=== PATIENT | female | born 1930 | race Caucasian/White ===

== ENCOUNTER 2017-03-04 20:50 | Inpatient (IN) | payer BC ==
--- NOTE | ~2017-03-04 | HP ---
History And Physical [place] [id number] [facility] [place]. [address] NAME: BONIFACIO TORRES : 34 STATUS : ADM Sofia PAT#: [id number] AGE: 86 ADM/REG DATE : 03/04/17 MR#: [id number] REPORT SERV DATE: 03/05/17 DICTATED BY: OH GIBBS DATE: 03/05/17 REPORT STATUS : Draft TRANSCRIBED BY: MODYas DATE: 03/05/17 DATE OF ADMISSION: 03/04/2017 POINT OF ENTRY: [facility] Emergency Department. PRIMARY BRICK MAKER: Yadiel Burt M.D. CHIEF COMPLAINT: Unresponsiveness, hypoglycemia. HISTORY OF PRESENT ILLNESS: Ms. Torres is an 86-year-old female with history of insulin- dependent diabetes mellitus type 2, chronic systolic congestive heart failure with ejection fraction of 40% to 50%, COPD, coronary artery disease and other medical comorbidities, who was found unresponsive by her family members today and subsequently found to have a blood sugar of 33. Family states that the patient has had multiple recent falls at home. She also has had now two episodes of hypoglycemia, the first episode they were able to correct with sugar- containing products at home and did not pursue medical evaluation. For this episode, they reportedly found the patient on the ground and they estimated that she had been on the ground for a few hours when they returned home. She initially was very unresponsive. They called EMS, where blood sugar was found to be 33 and reportedly received an amp of D50 with improvement in the patient's mental status. Of note, the patient has not been eating very well, but still taking her diabetes medications. Initial evaluation in the emergency department notable for initial blood sugar of 76. Troponin was mildly elevated at 0.14. She did have a white count of 12,700 as well as evidence of a urinary tract infection. The patient was subsequently admitted to the Hospitalist Service for further evaluation and management. The patient denies any fevers, night sweats, chills, chest pain, shortness of breath, abdominal pain, diarrhea, constipation, melena, or hematochezia. Does report some nausea as well as poor appetite and poor oral intake recently. REVIEW OF SYSTEMS: Comprehensive review of systems otherwise negative unless listed in the history of present illness. PREVIOUS MEDICAL HISTORY: 1. Insulin-dependent diabetes mellitus type 2. 2. COPD, on 2-3 L by nasal cannula. 3. Chronic systolic congestive heart failure with ejection fraction of 40% to 50%. 4. Coronary artery disease with prior coronary artery bypass grafting. 5. Atrial fibrillation, on Coumadin. 6. Chronic kidney disease stage 3. 7. Hypertension. History And Physical [address] [place]. [address] NAME: BONIFACIO TORRES : 32 STATUS : ADM Sofia PAT#: [id number] AGE: 86 ADM/REG DATE : 03/04/17 MR#: [id number] REPORT SERV DATE: 03/05/17 DICTATED BY: OH GIBBS DATE: 03/05/17 REPORT STATUS : Draft TRANSCRIBED BY: ANTONI DATE: 03/05/17 8. Peripheral vascular disease. 9. Hypothyroidism. 10.Chronic troponin elevation. 11.History of breast cancer. PAST SURGICAL HISTORY: 1. Pacemaker/ICD insertion. 2. Coronary artery bypass grafting. 3. Partial nephrectomy. 4. Stenting. 5. Cholecystectomy. 6. Abdominal hysterectomy. 7. Appendectomy. 8. Tonsillectomy. 9. Bilateral mastectomy. ALLERGIES: LEVAQUIN AND CODEINE. HOME MEDICATIONS: 1. ProAir two puff inhalation q.4 hours p.r.n. 2. Eliquis 2.5 mg b.i.d. 3. Aspirin 81 mg daily. 4. Wellbutrin XL 300 mg daily. 5. Carvedilol 6.25 mg b.i.d. 6. Vitamin D 1000 units daily. 7. Vitamin B12, 1000 mcg daily. 8. Cyclosporine, Restasis eye drops b.i.d. 9. Lexapro 10 mg daily. 10.Advair one puff inhalation b.i.d. 11.Lasix 40 mg b.i.d. 12.Amaryl 2 mg daily. 13.NovoLog 18 units t.i.d. 14.Levemir 40 units daily. 15.Levemir 15 units q.h.s. 16.Imdur 60 mg b.i.d. 17.Levothyroxine 125 mcg daily. 18.Lisinopril 5 mg daily. 19.Singulair 10 mg daily. 20.Multivitamin one tab daily. 21.Nitroglycerin p.r.n. 22.Corwith-3 fatty acid, fish oil 1000 mg daily. 23.Crestor 20 mg daily. 24.Aldactone 25 mg daily. 25.Spiriva one cap inhalation daily. 26.Nitroglycerin spray p.r.n. SOCIAL HISTORY: Denies any tobacco, alcohol, or illicits. Lives alone. History And Physical [address] [address] NAME: BONIFACIO TORRES : 32 STATUS : ADM Sofia PAT#: [id number] AGE: 86 ADM/REG DATE : 03/04/17 MR#: [id number] REPORT SERV DATE: 03/05/17 DICTATED BY: OH GIBBS DATE: 03/05/17 REPORT STATUS : Draft TRANSCRIBED BY: ANTONI DATE: 03/05/17 FAMILY MEDICAL HISTORY: Her mother has a history of heart failure. LABORATORIES AND IMAGIN. White count is 12.7, hemoglobin 11.0, hematocrit is 33.0, platelets 219. INR is 1.2. 2. Sodium is 142, potassium 3.5, chloride 106, carbon dioxide 27, BUN 41, creatinine 1.24, glucose of 76, calcium is 8.9, protein is 6.5, albumin is 2.8, bilirubin is 0.4, ALT is 55, AST 67, alkaline phosphatase is 70, magnesium is 2.2. 3. Troponin 0.14. 4. Lipase is 176. 5. Urinalysis: Spec gravity 1.013. Trace leukocyte esterase with 12 white blood cells per high-power field. 6. Chest x-ray per my review shows no acute cardiopulmonary abnormality. 7. CT scan of the brain shows a 14 mm extra-axial meningioma. Otherwise, no acute intracranial abnormalities. 8. EKG per my review shows a V-paced rhythm with occasional PVCs. PHYSICAL EXAMINATION: VITAL SIGNS: Temperature is 97.5 degrees Fahrenheit, pulse is 70, respirations 16, saturating 100% on room air, blood pressure is 117/51. GENERAL: The patient is awake and alert, in no acute distress, resting comfortably. She is a well-developed, well-nourished, elderly female. There is extensive ecchymosis and bruising over upper extremities. HEENT: Atraumatic and normocephalic. Slightly dry mucous membranes. Pupils are equal, round, reactive to light and accommodation. Extraocular eye movements intact. No scleral icterus. NECK: No jugular venous distention. No carotid bruits. CARDIAC: Regular rate and rhythm. No murmurs or gallops. Normal S1 and S2. LUNGS: Clear to auscultation bilaterally. No wheezes, rhonchi, or crackles. ABDOMEN: Soft, nontender, nondistended. Good bowel sounds. No rebound, guarding, or rigidity. EXTREMITIES: Warm and perfused. No cyanosis, clubbing, or edema. SKIN: Warm and dry, except for the abovementioned ecchymosis and bruising. PSYCH: Affect appropriate. NEURO: Alert and oriented x3. Cranial nerves 2 through 12 grossly intact. Speech is normal. Gait not assessed. ASSESSMENT AND PLAN: Ms. Torres is an 86-year-old female, who presents after being found down and unresponsive and having a severe symptomatic hypoglycemia. PROBLEM LIST: 1. Severe symptomatic hypoglycemia. 2. Urinary tract infection. 3. Elevated troponin value. 4. Recurrent mechanical falls. 5. Leukocytosis. 6. History of coronary artery disease. History And Physical [address] [address] NAME: BONIFACIO TORRES : 32 STATUS : ADM Sofia PAT#: [id number] AGE: 86 ADM/REG DATE : 03/04/17 MR#: [id number] REPORT SERV DATE: 03/05/17 DICTATED BY: OH GIBBS DATE: 03/05/17 REPORT STATUS : Draft TRANSCRIBED BY: ANTONI DATE: 03/05/17 7. Atrial fibrillation, on anticoagulation. 8. Hypothyroidism. PLAN: 1. Severe symptomatic hypoglycemia. I suspect this is all due to poor oral intake in the setting of continued use of high doses of insulin as well as oral hypoglycemics. We will admit the patient to the Hospitalist Service, hold the patient's insulin as well as oral hypoglycemics, provide her some gentle D5 infusion as well as place her on hypoglycemic protocol with frequent q.2 hour blood sugar checks at least overnight. We will consult diabetes nurse educator for assistance. We will likely need some down- titration of her insulin and diabetic regimen in the future. 2. Urinary tract infection. Follow up urine cultures. Place her on IV antibiotics. 3. Elevated troponin value. She denies any chest pain. EKG is nonischemic. We will continue to trend out cardiac enzymes. 4. Recurrent mechanical falls. We will ask Physical Therapy to evaluate the patient in the morning, checking orthostatic vital signs. Of note, she is on an anticoagulant, which places her at very high risk of significant adverse events. This will need to be discussed pending evaluation by PT. 5. Leukocytosis, likely secondary to urinary tract infection above. Chest x-ray was clear. She was afebrile. We will continue to monitor, checking procalcitonin level. 6. COPD, no evidence of any acute exacerbation at this time. 7. Chronic systolic congestive heart failure, the patient currently appears euvolemic at this time. Providing some very gentle IV fluid hydration with D5W. 8. Hypothyroidism, checking thyroid function studies. 9. DVT prophylaxis, is already on Eliquis. 10.Code status. The patient wishes to be full code. JCB/MODL Oh Gibbs MD / [id number] CC: MD Mirela Peng M.D. Brian Negus, M.D.
--- NOTE | ~2017-03-04 | DS ---
Discharge Summary [facility] [address] [facility] [place]. [address] NAME: BONIFACIO TORRES : 32 STATUS : DIS IN PAT#: [id number] AGE: 86 ADM/REG DATE : 03/04/17 MR#: [id number] REPORT SERV DATE: 03/10/17 DICTATED BY: MICHELLE MALLORY DATE: 03/09/17 REPORT STATUS : Draft TRANSCRIBED BY: MODYas DATE: 03/09/17 ADMISSION DATE: 03/04/2017 DISCHARGE DATE: 03/09/2017 CONSULTATIONS: None. INVASIVE PROCEDURES: None. DISCHARGE DIAGNOSES: 1. Acute encephalopathy. 2. Hypoglycemia. 3. Diabetes mellitus type 2. 4. Chronic obstructive pulmonary disease, on 2 to 3 L at home. 5. Chronic systolic congestive heart failure with ejection fraction of 40%. 6. Physical deconditioning. 7. Recurrent falls. 8. History of recurrent urinary tract infections. 9. Elevated troponin secondary to demand ischemia. 10.Atrial fibrillation. 11.Chronic kidney disease stage 3. 12.Hypertension. 13.History of pacemaker. 14.Peripheral neuropathy. 15.Peripheral vascular disease. DISCHARGE CONDITION: Stable. HISTORY OF PRESENT ILLNESS: For detailed HPI, please make reference to Dr. Olegario Saenz's dictation on 03/05/2017. In brief, this is an 86-year-old female with medical history of insulin-dependent diabetes type 2; chronic systolic heart failure with ejection fraction of 40%; COPD, on 2 to 3 L at home; coronary artery disease, who presented to the hospital after she was found unresponsive at home. On arrival of the paramedics, blood sugar was noted to be 33. The patient was brought to the emergency room for further evaluation. In the emergency room, the patient was noted to still be acutely confused. Blood sugar was repeated, was noted to be have improved into the 100s and remained stable. The patient was subsequently admitted to the Hospitalist Service for further evaluation. HOSPITAL COURSE: 1. Acute encephalopathy secondary to symptomatic hypoglycemia. The patient had a gentle infusion of D5 50 in the ER. The patient's oral hypoglycemic was discontinued. The patient's blood sugar gradually trended up and remained stable. The patient's blood sugar was subsequently controlled in the hospital with subcutaneous insulin. At the time of discharge, the patient was advised to discontinue glipizide at home and to control blood sugar with only insulin therapy. 2. Urinary tract infection. The patient's UA showed positive leukocyte esterase. The patient was placed on IV antibiotics. The patient's urine culture came back negative. Discharge Summary [address] [place]. [address] NAME: BONIFACIO TORRES : 32 STATUS : DIS IN PAT#: [id number] AGE: 86 ADM/REG DATE : 03/04/17 MR#: [id number] REPORT SERV DATE: 03/10/17 DICTATED BY: MICHELLE MALLORY DATE: 03/09/17 REPORT STATUS : Draft TRANSCRIBED BY: MODYas DATE: 03/09/17 The patient's IV ceftriaxone was subsequently discontinued. 3. Recurrent falls. The patient was admitted with history of recurrent falls. Prior to admission, the patient's etiology of recurrent falls was likely related to generalized physical deconditioning, poor p.o. intake, and recurrent hypoglycemia. The patient had physical therapy evaluation during the course of this admission. The patient was discharged to have rehabilitation at [facility]. 4. Elevated troponin. The patient had no chest pain during the course of this admission. EKG shows no dynamic acute ST-T wave changes. The patient's troponin was 0.14 on presentation, trended down to 0.06. No further episodes of chest pain reported. At the time of discharge, the patient was stable. The patient was advised to continue to follow up with her primary appeals court associate justice as an outpatient. 5. Gastroesophageal reflux disease. During the course of this admission, the patient complained of severe abdominal pain. A CT of the abdomen was done, shows no evidence of acute intraabdominal pathology. The patient's PPI was switched from bedtime to daily. The patient had a dose of simethicone and a dose of GI cocktail. The patient's abdominal pain subsequently improved. At the time of discharge, the patient had no further episode of abdominal pain. Liver enzymes were also negative during the course of this admission. The patient was advised to continue Protonix 40 mg in the morning for gastroesophageal reflux disease. 6. Paroxysmal atrial fibrillation. The patient had no evidence of RVR throughout the course of this admission. The patient was advised to continue beta-yoandy and Eliquis, and continue to follow up with primary care physician. IMAGING: CT brain without contrast, impression: 1. No acute intracranial hemorrhage or other acute intracranial pathology. 2. Mild diffuse cerebral involutional changes. 3. Dense atherosclerotic calcification of the vertebral arteries at the level of the foramen magnum. DISCHARGE CONDITION: Stable. DISCHARGE DISPOSITION: Subacute Rehab at [facility]. DISCHARGE ACTIVITIES: As tolerated. DISCHARGE DIET: 1800-calorie diet. DISCHARGE FOLLOWUP: 1. Follow up with primary care physician as an outpatient. 2. Follow up with Cardiology as an outpatient within two to three weeks of discharge. Greater than 35 minutes was used to prepare this patient's discharge, reconcile medication, and advise the patient on discharge plans and followup. IOO/MODL Discharge Summary [address] [address] NAME: BONIFACIO TORRES : 32 STATUS : DIS IN PAT#: [id number] AGE: 86 ADM/REG DATE : 03/04/17 MR#: [id number] REPORT SERV DATE: 03/10/17 DICTATED BY: MICHELLE MALLORY DATE: 03/09/17 REPORT STATUS : Draft TRANSCRIBED BY: ANTONI DATE: 03/09/17 Michelle Mallory MD / [id number] CC: MD Mirela Peng M.D.
[2017-03-04 19:49] LABS: BASOPHILS 0.2 %; BASOPHILS ABSOLUTE 0.03 10/3/uL (0.0-0.16); EOSINOPHILS 5.7 %; EOSINOPHILS ABSOLUTE 0.72 10/3/uL (0.0-0.53); IMMATURE GRANULOCYTES 0.6 %; IMMATURE GRANULOCYTES ABSOLUTE 0.07 10/3/uL (0.0-0.11); LYMPHOCYTES 10.7 %; LYMPHOCYTES ABSOLUTE 1.36 10/3/uL (0.67-4.30); MEAN CORPUS HGB CONC 33.3 g/dL (32.0-36.0); MEAN CORPUSCULAR VOLUME 87.1 fL (80-100); MEAN PLATELET VOLUME 9.3 fL (9.2-13.0); MONOCYTES 8.5 %; MONOCYTES ABSOLUTE 1.08 10/3/uL (0.21-1.20); NEUTROPHILS 74.3 %; PLATELET COUNT 219 10/3/uL (150-400); RBC DISTRIBUTION WIDTH 15.2 % (12.0-16.0); RED CELL COUNT 3.79 10/6/uL (4.0-5.6); WHITE BLOOD CELLS 12.7 10/3/uL (4.5-10.5)
[2017-03-04 19:52] LABS: MANUAL DIFF NO %
[2017-03-04 19:57] LABS: INTERNATIONAL NORMAL RATI 1.2 UNITS (-); PARTIAL THROMBO TIME 30.6 SEC (22.5-37.2)
[2017-03-04 20:01] LABS: PROTIME (NOT ORD) 15.2 SEC (12.0-14.5)
[2017-03-04 20:10] LABS: CALCIUM, SERUM 8.9 MG/DL (8.5-10.4); CHLORIDE, SERUM 106 MMOL/L (96-112); CO2 (CARBON DIOXIDE) 27 MMOL/L (24-34); CREATININE 1.24 MG/DL (0.55-1.02); DIRECT BILIRUBIN 0.1 MG/DL (0.0-0.4); GFR AFRICAN AMERICAN 46 ML/MIN (>=60); GFR NON AFRICAN AMERICAN 40 ML/MIN (>=60); INDIRECT BILIRUBIN(NOT ORDER) 0.3 MG/DL (0.1-0.9); POTASSIUM, SERUM 3.5 MMOL/L (3.5-5.3); SGOT(AST) 67 U/L (5-40); SGPT(ALT) 55 U/L (5-65); SODIUM, SERUM 142 MMOL/L (135-148); TOTAL BILIRUBIN 0.4 MG/DL (0-1.2); TOTAL PROTEIN 6.5 G/DL (6.0-8.5)
[2017-03-04 20:12] LABS: ALBUMIN 2.8 G/DL (3.5-5.0); ALKALINE PHOSPHATASE 70 U/L (45-117); BUN (BLOOD UREA NITROGEN) 41 MG/DL (6-23); GLUCOSE, SERUM 76 MG/DL (60-99)
[2017-03-04 20:13] LABS: CHEST PAIN PROFILE TAT 0 Hrs 30 Mins; TROPONIN I 0.14 NG/ML (<0.05)
[~2017-03-04 20:50] MED LIST: ADVAIR250 INH; ALBUTEROL5 INH; ASAB PO; BUDEPRION XL150 MG PO; BUDEPRION150 MG PO; CALCIUM PO; CALGLUCTAB PO; CENTRUM TAB1 TAB PO; COREG3 PO; CRESTOR20 MG PO; ELIQUIS 5 MG TAB5 MG PO; FISH OIL1200 MG PO; FISH-EPA1000 MG PO; GLUCOPHAGE1000 MG PO; GLUCPH PO; HUMALOG SC; HUMALOGPEN SC; IMDUR60 PO; INSNOV7030 SC; INSULIN LISPRO SC; IRON; IRON325 MG PO; ISOSORB DIN30 MG PO; L20 PO; L40 PO; LEVEMFLXPN SC; LEVEMIR SC; LEVOTHYROXIN125 MCG PO; LEXAPRO10 PO; LIPITOR40 PO; LOP25 PO; MULTIPLE VIT PO; MVI PO; NITROQUICK0.4 MG SL; OXYGEN; PLAVIX PO; PRIN10 PO; PRIN20 PO; PRIN5 PO; PROAIR HFA INH; SINGULAIR1 PO; SPIRIVA INH; SYMBICORT 160/41 INH INH; SYN.15 PO; SYN1 PO; SYN125 PO; SYNTHROID137 MCG PO; SYSTANE OP; ULTRAM50 PO; VENTOLIN HFA INH; VITAMIN B-121000 MC1 SL; VITAMIN D1000 UNI1 PO; VITAMIN D31000 UNIT PO; WELLSR150 PO; WELLXL300 PO; [UNRECOGNIZED DRUG - OTHER] INH
[2017-03-04 21:10] LABS: ASCORBIC ACID (UR NOT ORDER) NEG (NEG); BILIRUBIN, URINE NEGATIVE (NEG); ER URINALYSIS TAT 0 Hrs 10 Mins; KETONE, URINE NEGATIVE (NEG); LEUKOCYTE ESTERASE(NOT OR TRACE (NEG); NITRITE (URINE) NEG (NEG); WBC (NOT ORDERED) (RFLEX) 12 (0-5)
[2017-03-04] MEDS ORDERED: ADVAIR INH (21:30)
[2017-03-04] MEDS ORDERED: HALF81 PO (21:31)
[2017-03-04] MEDS ORDERED: WELLXL300 PO (21:32)
[2017-03-04] MEDS ORDERED: COREG6 PO (21:32)
[2017-03-04] MEDS ORDERED: CRESTOR20 MG PO (21:32)
[2017-03-04] MEDS ORDERED: ELIQUIS 2.5 MG2.5 MG PO (21:32)
[2017-03-04] MEDS ORDERED: LEXAPRO10 PO (21:33)
[2017-03-04] MEDS ORDERED: FISH-EPA1000 MG PO (21:33)
[2017-03-04] MEDS ORDERED: AMARYL2 PO (21:34)
[2017-03-04] MEDS ORDERED: L40 PO (21:34)
[2017-03-04] MEDS ORDERED: IMDUR60 PO (21:35)
[2017-03-04] MEDS ORDERED: SYN125 PO (21:35)
[2017-03-04] MEDS ORDERED: LEVEMFLXPN SC ×2 (21:35)
[2017-03-04] MEDS ORDERED: PRIN5 PO (21:36)
[2017-03-04] MEDS ORDERED: MULTIVIT/MIN PO (21:37)
[2017-03-04] MEDS ORDERED: SINGULAIR1 PO (21:37)
[2017-03-04] MEDS ORDERED: NITROGLYCERIN SPRAY SL (21:38)
[2017-03-04] MEDS ORDERED: NITROSTAT0.4 MG SL (21:38)
[2017-03-04] MEDS ORDERED: SPIRIVA INH (21:39)
[2017-03-04] MEDS ORDERED: PROAIR HFA INH (21:39)
[2017-03-04] MEDS ORDERED: NOVOLOG SC (21:39)
[2017-03-04] MEDS ORDERED: RESTASIS OPH (21:40)
[2017-03-04] MEDS ORDERED: CYANO1000T PO (21:41)
[2017-03-04] MEDS ORDERED: SPIRO25 PO (21:41)
[2017-03-04] MEDS ORDERED: VITAMIN D31000 UNIT PO (21:42)
[2017-03-05 06:11] LABS: BASOPHILS 0.3 %; BASOPHILS ABSOLUTE 0.03 10/3/uL (0.0-0.16); EOSINOPHILS 8.7 %; EOSINOPHILS ABSOLUTE 0.97 10/3/uL (0.0-0.53); HEMOGLOBIN 9.9 g/dL (12.0-16.0); IMMATURE GRANULOCYTES 0.4 %; IMMATURE GRANULOCYTES ABSOLUTE 0.04 10/3/uL (0.0-0.11); LYMPHOCYTES 12.8 %; LYMPHOCYTES ABSOLUTE 1.42 10/3/uL (0.67-4.30); MEAN CORPUSCULAR HEMOGLOB 30.1 pg (26.0-34.0); MEAN CORPUSCULAR VOLUME 84.8 fL (80-100); MEAN PLATELET VOLUME 9.8 fL (9.2-13.0); MONOCYTES 8.8 %; MONOCYTES ABSOLUTE 0.98 10/3/uL (0.21-1.20); NEUTROPHILS ABSOLUTE 7.68 10/3/uL (2.02-8.40); PLATELET COUNT 220 10/3/uL (150-400); RBC DISTRIBUTION WIDTH 15.6 % (12.0-16.0); RED CELL COUNT 3.29 10/6/uL (4.0-5.6); WHITE BLOOD CELLS 11.1 10/3/uL (4.5-10.5)
[2017-03-05 06:15] LABS: HEMATOCRIT 27.9 % (36.0-48.0); MANUAL DIFF NO %; MEAN CORPUS HGB CONC 35.5 g/dL (32.0-36.0)
[2017-03-05 06:31] LABS: PLATELET ESTIMATE ADQ (ADEQUATE); RBC MORPHOLOGY NORM (NORMAL)
[2017-03-05 06:36] LABS: BUN (BLOOD UREA NITROGEN) 38 MG/DL (6-23); CALCIUM, SERUM 8.8 MG/DL (8.5-10.4); CHLORIDE, SERUM 107 MMOL/L (96-112); CK-MB 6.7 NG/ML; CO2 (CARBON DIOXIDE) 27 MMOL/L (24-34); CREATININE 1.07 MG/DL (0.55-1.02); FREE T4 1.11 NG/DL (0.76-1.46); GFR AFRICAN AMERICAN 55 ML/MIN (>=60); GFR NON AFRICAN AMERICAN 48 ML/MIN (>=60); POTASSIUM, SERUM 3.4 MMOL/L (3.5-5.3); SODIUM, SERUM 143 MMOL/L (135-148)
[2017-03-05 06:38] LABS: CKMB INDEX (NOT ORD) 1.4; CPK 466 U/L (0-200); GLUCOSE, SERUM 120 MG/DL (60-99)
[2017-03-05 06:50] LABS: B NATRIURETIC PEPTIDE (BNP) 261.6 PG/ML (< 100.0)
[2017-03-05 07:34] LABS: PROCALCITONIN 0.15 ng/mL (<0.5)
[2017-03-05 11:59] LABS: CPK 338 U/L (0-200)
[2017-03-05 12:00] LABS: CK-MB 4.6 NG/ML; TROPONIN I 0.06 NG/ML (<0.05)
[2017-03-06 05:39] LABS: BASOPHILS 0.7 %; BASOPHILS ABSOLUTE 0.07 10/3/uL (0.0-0.16); EOSINOPHILS 12.3 %; EOSINOPHILS ABSOLUTE 1.25 10/3/uL (0.0-0.53); HEMATOCRIT 26.5 % (36.0-48.0); IMMATURE GRANULOCYTES 0.5 %; IMMATURE GRANULOCYTES ABSOLUTE 0.05 10/3/uL (0.0-0.11); LYMPHOCYTES 15.7 %; MEAN CORPUSCULAR HEMOGLOB 29.3 pg (26.0-34.0); MEAN CORPUSCULAR VOLUME 86.3 fL (80-100); MEAN PLATELET VOLUME 9.9 fL (9.2-13.0); MONOCYTES 9.3 %; MONOCYTES ABSOLUTE 0.95 10/3/uL (0.21-1.20); NEUTROPHILS 61.5 %; NEUTROPHILS ABSOLUTE 6.25 10/3/uL (2.02-8.40); PLATELET COUNT 210 10/3/uL (150-400); RBC DISTRIBUTION WIDTH 15.8 % (12.0-16.0); RED CELL COUNT 3.07 10/6/uL (4.0-5.6); WHITE BLOOD CELLS 10.2 10/3/uL (4.5-10.5)
[2017-03-06 05:44] LABS: MANUAL DIFF NO %
[2017-03-06 05:59] LABS: ALBUMIN 2.5 G/DL (3.5-5.0); BUN (BLOOD UREA NITROGEN) 36 MG/DL (6-23); CALCIUM, SERUM 8.1 MG/DL (8.5-10.4); CHLORIDE, SERUM 109 MMOL/L (96-112); CO2 (CARBON DIOXIDE) 25 MMOL/L (24-34); CREATININE 1.15 MG/DL (0.55-1.02); GFR AFRICAN AMERICAN 51 ML/MIN (>=60); GFR NON AFRICAN AMERICAN 44 ML/MIN (>=60); GLUCOSE, SERUM 143 MG/DL (60-99); POTASSIUM, SERUM 3.8 MMOL/L (3.5-5.3); SODIUM, SERUM 143 MMOL/L (135-148)
[2017-03-06 06:00] LABS: PHOSPHORUS, SERUM 2.8 MG/DL (2.5-4.5)
[2017-03-06 16:02] LABS: ALBUMIN 2.6 G/DL (3.5-5.0); ALKALINE PHOSPHATASE 71 U/L (45-117); SGOT(AST) 24 U/L (5-40); SGPT(ALT) 45 U/L (5-65); TOTAL BILIRUBIN 0.2 MG/DL (0-1.2); TOTAL PROTEIN 5.8 G/DL (6.0-8.5)
[2017-03-06 16:03] LABS: DIRECT BILIRUBIN < 0.1 MG/DL (0.0-0.4); INDIRECT BILIRUBIN(NOT ORDER) 0.1 MG/DL (0.1-0.9)
[2017-03-07 05:05] LABS: BASOPHILS 0.4 %; BASOPHILS ABSOLUTE 0.04 10/3/uL (0.0-0.16); EOSINOPHILS ABSOLUTE 1.51 10/3/uL (0.0-0.53); HEMATOCRIT 26.9 % (36.0-48.0); HEMOGLOBIN 8.9 g/dL (12.0-16.0); IMMATURE GRANULOCYTES 0.8 %; IMMATURE GRANULOCYTES ABSOLUTE 0.09 10/3/uL (0.0-0.11); LYMPHOCYTES 14.8 %; MEAN CORPUS HGB CONC 33.1 g/dL (32.0-36.0); MEAN CORPUSCULAR HEMOGLOB 29.1 pg (26.0-34.0); MEAN CORPUSCULAR VOLUME 87.9 fL (80-100); MEAN PLATELET VOLUME 10.2 fL (9.2-13.0); MONOCYTES 7.7 %; MONOCYTES ABSOLUTE 0.83 10/3/uL (0.21-1.20); NEUTROPHILS 62.3 %; NEUTROPHILS ABSOLUTE 6.71 10/3/uL (2.02-8.40); PLATELET COUNT 227 10/3/uL (150-400); RBC DISTRIBUTION WIDTH 15.7 % (12.0-16.0); RED CELL COUNT 3.06 10/6/uL (4.0-5.6); WHITE BLOOD CELLS 10.8 10/3/uL (4.5-10.5)
[2017-03-07 05:09] LABS: MANUAL DIFF NO %
[2017-03-07 05:20] LABS: ALBUMIN 2.5 G/DL (3.5-5.0); ALKALINE PHOSPHATASE 65 U/L (45-117); BUN (BLOOD UREA NITROGEN) 33 MG/DL (6-23); CALCIUM, SERUM 8.7 MG/DL (8.5-10.4); CHLORIDE, SERUM 106 MMOL/L (96-112); CO2 (CARBON DIOXIDE) 27 MMOL/L (24-34); CREATININE 1.07 MG/DL (0.55-1.02); GFR AFRICAN AMERICAN 55 ML/MIN (>=60); GFR NON AFRICAN AMERICAN 48 ML/MIN (>=60); GLUCOSE, SERUM 168 MG/DL (60-99); POTASSIUM, SERUM 4.5 MMOL/L (3.5-5.3); SGOT(AST) 18 U/L (5-40); SGPT(ALT) 40 U/L (5-65); SODIUM, SERUM 140 MMOL/L (135-148); TOTAL BILIRUBIN 0.2 MG/DL (0-1.2); TOTAL PROTEIN 5.6 G/DL (6.0-8.5)
[2017-03-07 05:21] LABS: DIRECT BILIRUBIN < 0.1 MG/DL (0.0-0.4); INDIRECT BILIRUBIN(NOT ORDER) 0.1 MG/DL (0.1-0.9)
[2017-03-07 11:36] LABS: ASCORBIC ACID (UR NOT ORDER) NEG (NEG); BILIRUBIN, URINE NEGATIVE (NEG); KETONE, URINE NEGATIVE (NEG); LEUKOCYTE ESTERASE(NOT OR NEG (NEG); WBC (NOT ORDERED) (RFLEX) 4 (0-5)
[2017-03-08 05:12] LABS: BASOPHILS 0.3 %; BASOPHILS ABSOLUTE 0.03 10/3/uL (0.0-0.16); HEMATOCRIT 27.5 % (36.0-48.0); HEMOGLOBIN 9.1 g/dL (12.0-16.0); IMMATURE GRANULOCYTES ABSOLUTE 0.11 10/3/uL (0.0-0.11); LYMPHOCYTES 14.9 %; MEAN CORPUS HGB CONC 33.1 g/dL (32.0-36.0); MEAN CORPUSCULAR HEMOGLOB 29.4 pg (26.0-34.0); MEAN PLATELET VOLUME 10.1 fL (9.2-13.0); MONOCYTES 8.3 %; MONOCYTES ABSOLUTE 0.95 10/3/uL (0.21-1.20); NEUTROPHILS 61.5 %; NEUTROPHILS ABSOLUTE 7.01 10/3/uL (2.02-8.40); PLATELET COUNT 233 10/3/uL (150-400); RBC DISTRIBUTION WIDTH 15.4 % (12.0-16.0); RED CELL COUNT 3.09 10/6/uL (4.0-5.6); WHITE BLOOD CELLS 11.4 10/3/uL (4.5-10.5)
[2017-03-08 05:14] LABS: MANUAL DIFF NO %
[2017-03-08 05:23] LABS: BUN (BLOOD UREA NITROGEN) 34 MG/DL (6-23); CALCIUM, SERUM 8.9 MG/DL (8.5-10.4); CHLORIDE, SERUM 105 MMOL/L (96-112); CO2 (CARBON DIOXIDE) 28 MMOL/L (24-34); CREATININE 1.12 MG/DL (0.55-1.02); GFR AFRICAN AMERICAN 52 ML/MIN (>=60); GFR NON AFRICAN AMERICAN 45 ML/MIN (>=60); PHOSPHORUS, SERUM 2.6 MG/DL (2.5-4.5); POTASSIUM, SERUM 4.6 MMOL/L (3.5-5.3); SODIUM, SERUM 139 MMOL/L (135-148)
[2017-03-08 05:24] LABS: GLUCOSE, SERUM 205 MG/DL (60-99)
[2017-03-08 14:44] LABS: ASCORBIC ACID (UR NOT ORDER) NEG (NEG); BILIRUBIN, URINE NEGATIVE (NEG); KETONE, URINE NEGATIVE (NEG); LEUKOCYTE ESTERASE(NOT OR TRACE (NEG); WBC (NOT ORDERED) (RFLEX) 6 (0-5)
[2017-03-09 06:28] LABS: BASOPHILS 0.4 %; BASOPHILS ABSOLUTE 0.05 10/3/uL (0.0-0.16); EOSINOPHILS 12.6 %; EOSINOPHILS ABSOLUTE 1.42 10/3/uL (0.0-0.53); HEMATOCRIT 29.2 % (36.0-48.0); HEMOGLOBIN 9.6 g/dL (12.0-16.0); IMMATURE GRANULOCYTES 0.7 %; IMMATURE GRANULOCYTES ABSOLUTE 0.08 10/3/uL (0.0-0.11); LYMPHOCYTES 12.7 %; LYMPHOCYTES ABSOLUTE 1.43 10/3/uL (0.67-4.30); MANUAL DIFF NO %; MEAN CORPUS HGB CONC 32.9 g/dL (32.0-36.0); MEAN CORPUSCULAR HEMOGLOB 29.2 pg (26.0-34.0); MEAN CORPUSCULAR VOLUME 88.8 fL (80-100); MEAN PLATELET VOLUME 10.3 fL (9.2-13.0); MONOCYTES 6.7 %; MONOCYTES ABSOLUTE 0.76 10/3/uL (0.21-1.20); NEUTROPHILS 66.9 %; NEUTROPHILS ABSOLUTE 7.52 10/3/uL (2.02-8.40); PLATELET COUNT 256 10/3/uL (150-400); RBC DISTRIBUTION WIDTH 15.4 % (12.0-16.0); RED CELL COUNT 3.29 10/6/uL (4.0-5.6); WHITE BLOOD CELLS 11.3 10/3/uL (4.5-10.5)
== END 2017-03-09 13:20 | DRG 637 ==
LOC: ER 20:50 → 6NO 22:29
PROVIDERS: Hospitalist; Internal Medicine; Nurse Practitioner
DX: E11.649 Type 2 diabetes mellitus with hypoglycemia without coma (principal); G93.41 Metabolic encephalopathy; I24.8 Other forms of acute ischemic heart disease; I50.22 Chronic systolic (congestive) heart failure; I13.0 Hypertensive heart and chronic kidney disease with heart failure and stage 1 through stage 4 chronic kidney disease, or unspecified chronic kidney disease; N39.0 Urinary tract infection, site not specified; K21.9 Gastro-esophageal reflux disease without esophagitis; I48.0 Paroxysmal atrial fibrillation; Z99.81 Dependence on supplemental oxygen; E11.22 Type 2 diabetes mellitus with diabetic chronic kidney disease; N18.3 Chronic kidney disease, stage 3 (moderate); R10.9 Unspecified abdominal pain; I25.10 Atherosclerotic heart disease of native coronary artery without angina pectoris; Z79.4 Long term (current) use of insulin; Z91.81 History of falling; Z95.1 Presence of aortocoronary bypass graft; Z85.3 Personal history of malignant neoplasm of breast; Z95.810 Presence of automatic (implantable) cardiac defibrillator; Z90.13 Acquired absence of bilateral breasts and nipples; Z90.5 Acquired absence of kidney; Z90.710 Acquired absence of both cervix and uterus
CPT/HCPCS: 70450; 71010; 72125; 74176; 80048; 80069; 80076; 81001; 82140; 82272; 82550; 82553; 82962; 83690; 83735; 83880; 84100; 84145; 84439; 84443; 84484; 85025; 85610; 85730; 93005; 94640; 96374; 97110-GP; 97116-GP; 97161-GP; 99285; A9270-GY

== ENCOUNTER 2017-03-19 18:18 | Inpatient (IN) | payer BC ==
--- NOTE | ~2017-03-19 | CN ---
Consultation Report [facility] [address] [facility] [place]. [address] NAME: BONIFACIO TORRES : 32 STATUS : ADM IN PAT#: [id number] AGE: 86 ADM/REG DATE : 03/19/17 MR#: [id number] REPORT SERV DATE: 03/21/17 DICTATED BY: KB DOUGLAS DATE: 03/20/17 REPORT STATUS : Draft TRANSCRIBED BY: MODL DATE: 03/20/17 CONSULTATION NOTE DATE OF CONSULTATION: 03/20/2017 REASON FOR CONSULTATION: The patient admitted with multiple abdominal complaint including abdominal pain, nausea, vomiting, diarrhea, and I was consulted for the same. At same time noted to have anemia and heme-positive stool. HISTORY OF PRESENT COMPLAINT: Ms. Torres is an 86-year-old female admitted with above history. The patient also has a long chronic medical problems. Past medical history includes congestive heart failure, which is systolic congestive heart failure, atrial fibrillation, coronary artery disease, left bundle-branch block, peripheral artery disease, and a recent history of encephalopathy admitted here a few days ago and was discharged to [facility] for rehab. She was in [facility] for about a week or 10 days and over the time developed significant abdominal pain associated with nausea, vomiting, and diarrhea, and also noted to have worsening renal insufficiency. All of this combined made them to send her back to emergency room and was admitted. In the ER, she was diagnosed to have heme positive stool. As far as she is concerned she has some constipation problem, diarrhea some off and on. Also some heartburn, indigestion, lately abdominal pain with nausea and vomiting. She might have had a sigmoidoscopy in the past many years ago. According to her, she was awake while the procedure was done. Seems like she may not have done any colonoscopy in the past. PAST MEDICAL HISTORY: As noted in the history itself. Insulin-dependent diabetes, hypertension, and COPD. She also had history of breast cancer status post bilateral mastectomy and chronic troponin elevation. PAST SURGICAL HISTORY: Includes CABG, also had a partial hysterectomy, appendectomy, and cholecystectomy. ALLERGIES: THE PATIENT HAS ALLERGY TO CODEINE AND LEVOFLOXACIN. MEDICATIONS: At home include acetaminophen, albuterol, Maalox, apixaban, aspirin, Wellbutrin, carvedilol, cholecalciferol, cyanocobalamin, cyclosporine eye ointment, Colace, escitalopram, fluticasone, furosemide, insulin, isosorbide, levothyroxine, lisinopril, montelukast, multivitamin, nitroglycerin, omega-3 supplements, Zofran, pantoprazole, MiraLax, promethazine, psyllium, rosuvastatin, spironolactone, and tiotropium. She is on chronic anticoagulation also. SOCIAL HISTORY: Denies any tobacco or alcohol use. FAMILY HISTORY: Significant for congestive heart failure, mainly with mother. Consultation Report [place] [id number] [facility] [place]. [address] NAME: BONIFACIO TORRES : 32 STATUS : ADM IN [facility]#: [id number] AGE: 86 ADM/REG DATE : 03/19/17 MR#: [id number] REPORT SERV DATE: 03/21/17 DICTATED BY: KB DOUGLAS DATE: 03/20/17 REPORT STATUS : Draft TRANSCRIBED BY: ANTONI DATE: 03/20/17 REVIEW OF SYSTEMS: Noted from the chart. The patient is comfortable in the bed. No acute change in vision or hearing. No acute neurological or psychiatric symptoms. Pleasant lady. Denies any chest pain. No difficulty breathing at this time. Nausea, vomiting seems to be settled, continued to have some abdominal discomfort. No urinary symptoms. All other systems reviewed, were negative. PHYSICAL EXAMINATION: VITAL SIGNS: Temperature 97.4, pulse 70, respirations 17, blood pressure 133/61. HEENT: No icterus. Pale conjunctivae. Skin looks pale too. NECK: Supple. No JVD. CHEST: Bilateral good air flow. Normal excursions. HEART: S1, S2. Regular rate and rhythm with systolic murmur 2/6. ABDOMEN: Soft, somewhat obese. Multiple surgical scars noted. Small umbilical hernia noted and there is about 6 cm x 7 cm maybe 2 or 3 cm deep indurations in the abdominal wall on the right side of the umbilical hernia, which is tender, erythematous, and also somewhat warmer than surrounding skin. EXTREMITIES: No clubbing, cyanosis, or edema. NEUROLOGICAL: Alert, oriented, moving all extremities. PSYCH: Normal affect. LAB: Sodium 136, potassium 4.0, BUN 46, creatinine 1.49, glucose 194, albumin 2.2. Recent liver enzymes were normal. Iron 18. Iron binding capacity 178, ferritin 377, folic acid 38.7, vitamin B12 3074. Troponin 7.06. White count 12.9, hemoglobin 8.6, hematocrit 26.0, platelet 263,000. PT 20.9, INR 1.8, PTT 40.1. The impression of the CT of the abdomen done during this admission shows no acute abdominal or pelvic pathology. No bowel obstruction. Moderate size periumbilical hernia containing a non-incarcerated segment of mid transverse colon status post cholecystectomy, appendectomy, and hysterectomy. Hyperdense nodule of 2.9 to 3.4 cm size at the lower pole of the left kidney cortex, small bilateral renal cyst, mild diverticulosis, cardiomegaly. ASSESSMENT: The patient admitted with above history of abdominal pain, nausea, vomiting, diarrhea, heme-positive stool and anemia. Needed to be evaluated further. Not sure about having colonoscopy in the past. Also noted to have a large indurated area 6 cm x 7 cm x 2 cm size, which is indurated, erythematous, and tender and slightly warm to touch compared to the surrounding skin, which is next to umbilical hernia on the right side. I would like to rule out abdominal wall abscess or any intraabdominal process. PLAN: To schedule her for EGD colonoscopy on Thursday and prep her tonight and tomorrow to clean her out. Also we will get a surgical consult to evaluate this area of possible abscess or intraabdominal process. We will advise further after EGD colonoscopy. NS/MODL Consultation Report [address] [place]. [address] NAME: BONIFACIO TORRES : 32 STATUS : ADM IN [facility]#: [id number] AGE: 86 ADM/REG DATE : 03/19/17 MR#: [id number] REPORT SERV DATE: 03/21/17 DICTATED BY: KB DOUGLAS DATE: 03/20/17 REPORT STATUS : Draft TRANSCRIBED BY: ANTONI DATE: 03/20/17 Kb Douglas M.D. / [id number] CC: MD Mirela Kevin M.D.
--- NOTE | ~2017-03-19 | IDS ---
Interim Discharge Summary [facility] [address] [place]. [address] NAME: BONIFACIO TORRES : 32 STATUS : ADM IN PAT#: [id number] AGE: 86 ADM/REG DATE : 03/19/17 MR#: [id number] REPORT SERV DATE: 03/24/17 DICTATED BY: JR. GONZALEZ WILLIAM JOHN DATE: 03/23/17 REPORT STATUS : Draft TRANSCRIBED BY: MODYas DATE: 03/23/17 ADMISSION DATE: 03/19/2017 DISCHARGE DATE: Of note, I took care of this patient only today, therefore I will attempt to reconstruct the events of the past 5 days, however, I was not involved in the care. WORKING DIAGNOSES: Include. 1. Gastrointestinal bleed, status post colonoscopy. 2. Non-ST elevation myocardial infarction type 2. 3. Chronic kidney disease, stage 3. 4. Ischemic cardiomyopathy. 5. Abdominal pain from the non-obstructed umbilical hernia with some question of need for repair. 6. Diabetes mellitus type 2. 7. Chronic obstructive pulmonary disease exacerbation. 8. Coronary artery disease with history of bypass. 9. History of atrial fibrillation. OPERATIONS, PROCEDURES, AND TREATMENTS: Include. 1. Colonoscopy done 03/22/2017 which showed mild diverticulosis in sigmoid colon without evidence of diverticular bleeding. There were non-bleeding internal hemorrhoids, tortuous colon, redundant colon. Ileum was normal in the examined portions. 2. Upper endoscopy done 03/22/2017, showed LA grade A reflux esophagitis with hiatal hernia, gastritis, and a normal duodenum. 3. Cardiology consultation by Dr. Burt. 4. Colorectal surgery, Dr. Ruth. 5. GI consultation, Dr. Menchaca. 6. Chest x-ray done 03/19/2017, which showed venous congestion with mild bibasilar atelectasis, stable COPD changes, AICD placement. 7. CT of the abdomen and pelvis done 03/19/2017 which showed no acute abdominal or pelvic pathology. No bowel obstruction. No imaging explaining this nausea or vomiting. There was moderate sized periumbilical hernia with non-incarcerated gut in the mid transverse colon. There were cholecystectomy changes. There was an exophytic hyperdense mass in the lower pole of left kidney, larger since 2008. 8. Echocardiogram done 03/20/2017, which showed moderate left ventricular dysfunction with ejection fraction 35%, unchanged from prior. There was right ventricular function intact. There was left and right atrial dilation and increased right-sided filling pressures. 9. Repeat CT of the abdomen and pelvis done 03/21/2017, showed no acute abnormality. No change since 03/19/2017. MEDICATIONS: See my daily progress note. HOSPITAL COURSE: The patient is an 86-year-old female, presented to the emergency room on 03/19/2017, with complaint of anorexia, nausea, vomiting, diarrhea, and chest pain. The Interim Discharge Summary [facility] [address] [facility] [place]. [address] NAME: BONIFACIO TORRES : 32 STATUS : ADM IN PAT#: [id number] AGE: 86 ADM/REG DATE : 03/19/17 MR#: [id number] REPORT SERV DATE: 03/24/17 DICTATED BY: JR. GONZALEZ WILLIAM JOHN DATE: 03/23/17 REPORT STATUS : Draft TRANSCRIBED BY: ANTNOI DATE: 03/23/17 patient was recently hospitalized from 03/04/2017 through 03/09/2017 for severe symptomatic hypoglycemia encephalopathy secondary to poor p.o. intake. Her blood sugars were stabilized and she was transferred to [facility]. She had ongoing troubles with poor appetite, nausea, vomiting, and bilateral lower quadrant pain at [facility]. She was treated with IV fluids and subsequently returned to the emergency room. Please see Dr. Saenz's dictated history and physical for exact details. The patient was admitted to [facility]. Regarding the chest pain, she was seen in consultation by Dr. Burt of Cardiology who recommended holding Eliquis, echocardiogram, ICD check, and monitoring troponins. The patient's troponins peaked at 7.06 on 03/20/2017. Cardiology had no further recommendations. Regarding the patient's GI bleed, her H and H were monitored. She was seen in consultation by Gastroenterology and eventually underwent an upper and lower endoscopy as detailed above. No source of bleed was found. Recommendation was to hold anticoagulants and antiplatelets as possible. Regarding the umbilical hernia, this is felt to be the biggest cause of nausea and vomiting. The patient was evaluated by Colorectal Surgery who felt the patient is too high of a risk. The hernia is apparently quite close to the skin in which case either conservative treatment would help or if an enterocutaneous fistula formed an ostomy appliance would be used as a stool collection device. Regarding COPD exacerbation, the patient was placed on inhaled medications and steroids. I have changed that to prednisone. The patient has a left renal exophytic mass which needs to be worked up as an outpatient. The patient and family feel her quality of life is not good and they are currently discussing with Dr. Tirado, palliative measures. For today's exam and lab, please see daily progress note. My partner will assume care of this patient in the morning. WJF/MODL Remy Gonzalez Jr, MD / [id number] CC: Remy Gonzalez Jr, MD Christine Parker, M.D.
--- NOTE | ~2017-03-19 | EGD ---
EGD REPORT [facility] [address] [place] [address] NAME: ABBY TORRES : 32 STATUS : ADM IN PAT#: [id number] AGE: 86 ADM/REG DATE : 03/19/17 MR#: [id number] REPORT SERV DATE: 03/22/17 DICTATED BY: EUSEBIA DOUGLAS DATE: 03/22/17 REPORT STATUS : Draft [facility]ANSCRIBED BY: [facility] DATE: 03/22/17 Endoscopy Center Patient Name: Abby Torres Date of : 1930 Attending MD: EUSEBIA DOUGLAS MD Procedure Date No Time: 03/22/2017 Procedure: Colonoscopy Indications: Generalized abdominal pain, Anemia Referring MD: JUSTINE KRAUSE MD Medicines: Monitored Anesthesia Care Complications: No immediate complications. Procedure: Pre-Anesthesia Assessment: - ASA Grade Assessment: III - A patient with severe systemic disease. After I obtained informed consent, the scope was passed under direct vision. Throughout the procedure, the patient's blood pressure, pulse, and oxygen saturations were monitored continuously. The PCF [id number] was introduced through the anus and advanced to the terminal ileum, with identification of the appendiceal orifice and IC valve. The colonoscopy was technically difficult and complex due to unusual anatomy. The patient tolerated the procedure well. The quality of the bowel preparation was good. Findings: A few medium-mouthed diverticula were found in the sigmoid colon. There was no evidence of diverticular bleeding. Noted an opening at splenic flexure extending to a known umbilical hernia with inflammed and scarred mucosa with pigmentation. Obtained biopsies at the opening only. Biopsies were taken with a cold forceps for histology. Verification of patient identification for the specimen was done. Estimated blood loss was minimal. Non-bleeding internal hemorrhoids were found during retroflexion and were medium-sized. The colon (entire examined portion) was moderately tortuous. The colon (entire examined portion) was moderately redundant. The terminal ileum appeared normal. Impression: - Mild diverticulosis in the sigmoid colon. There was no evidence of diverticular bleeding. - Non-bleeding internal hemorrhoids. - Tortuous colon. - Redundant colon. - The examined portion of the ileum was normal. EGD REPORT [address] [address] NAME: ABBY TORRES : 32 STATUS : ADM IN [facility]#: [id number] AGE: 86 ADM/REG DATE : 03/19/17 MR#: [id number] REPORT SERV DATE: 03/22/17 DICTATED BY: EUSEBIA DOUGLAS DATE: 03/22/17 REPORT STATUS : Draft TRANSCRIBED BY: [employer] DATE: 03/22/17 Recommendation: - Refer to a colo-rectal surgeon today. - Clear liquid diet today. - Return to my office in 4 weeks. Procedure Code(s): --- Professional --- 46015, Colonoscopy, flexible, proximal to splenic flexure; with biopsy, single or multiple Diagnosis Code(s): --- Professional --- K64.8, Other hemorrhoids K57.30, Diverticulosis of large intestine without perforation or abscess without bleeding Q43.8, Other specified congenital malformations of intestine R10.84, Generalized abdominal pain D64.9, Anemia, unspecified CPT copyright 2013 [employer]. All rights reserved. The codes documented in this report are preliminary and upon cisco consultant review may be revised to meet current compliance requirements. EUSEBIA DOUGLAS MD 03/22/2017 11:23 AM This report has been signed electronically. Number of Addenda: 0 Note Initiated On: 03/22/2017 10:25 AM Scope Withdrawal Time 0 hours 9 minutes 6 seconds [address] [place] [id number]
--- NOTE | ~2017-03-19 | CN ---
Consultation Report [facility] [address] [place]. [address] NAME: BONIFACIO TORRES : 32 STATUS : ADM IN [facility]#: [id number] AGE: 86 ADM/REG DATE : 03/19/17 MR#: [id number] REPORT SERV DATE: 03/20/17 DICTATED BY: NAYELI JEFFERY DATE: 03/20/17 REPORT STATUS : Draft TRANSCRIBED BY: MODYas DATE: 03/20/17 CARDIOLOGY CONSULTATION NOTE. DATE OF CONSULTATION: 03/20/2017 REFERRING PHYSICIAN: Remy Gonzalez Jr, MD CHIEF COMPLAINT: Nausea, vomiting, and abdominal pain. REASON FOR CONSULTATION: Abnormal troponin. SOURCE: The patient and her chart. HISTORY OF PRESENT ILLNESS: Ms. Torres is a very pleasant 86-year-old white woman, who reports that she did well until recently, when she lost her appetite about a month ago, and then had a fall. She was hospitalized for several days. Discharge diagnosis was reportedly encephalopathy and was sent to rehab. She was sent back to the hospital from rehab yesterday, due to nausea, vomiting, lower abdominal pain, and diarrhea. She did not have any constipation. She did not notice any blood in her stool, but reported that her stool was heme positive. She has felt weak and dizzy. She has had some shortness of breath. She had some slight chest pain in the rehab facility. She has not had any palpitations or syncope. No defibrillator shocks. REVIEW OF SYSTEMS: All other systems are negative. ALLERGIES: CODEINE AND LEVOFLOXACIN. HOME MEDICATIONS: Acetaminophen, albuterol, Maalox, apixaban, aspirin, Wellbutrin, carvedilol, cholecalciferol, cyanocobalamin, Cyclosporin ophthalmic, Colace, escitalopram, fluticasone, furosemide, insulin, isosorbide, levothyroxine, lisinopril, montelukast, multivitamins, nitroglycerin, omega-3, ondansetron, pantoprazole, MiraLAX, promethazine, psyllium, rosuvastatin, spironolactone, and tiotropium. CARDIAC RISK FACTORS: Diabetes, hypertension, cholesterol, and former tobacco. PAST MEDICAL HISTORY: Chronic systolic congestive heart failure, status post BiV ICD placement, atrial fibrillation, status post cardioversion on amiodarone and Eliquis, coronary artery disease, status post remote coronary artery bypass grafting, last catheterization 2013, with patent MERCADO to LAD graft, patent free NAINA to PDA graft, and elevated LVEDP, recommendations were for medical therapy, left bundle-branch block, peripheral artery disease, status post multiple percutaneous interventions, venous stasis, peripheral edema, 4 to 5 cardiac risk factors as described, recent admission for encephalopathy. Consultation Report [address] [place]. [address] NAME: BONIFACIO TORRES : 32 STATUS : ADM IN PAT#: [id number] AGE: 86 ADM/REG DATE : 03/19/17 MR#: [id number] REPORT SERV DATE: 03/20/17 DICTATED BY: NAYELI JEFFERY DATE: 03/20/17 REPORT STATUS : Draft TRANSCRIBED BY: ANTONI DATE: 03/20/17 PHYSICAL EXAMINATION: GENERAL: She is an acutely and chronically ill appearing, very pale, elderly white woman, in no acute distress. VITAL SIGNS: Blood pressure 93/52, pulse 70, temperature 97.1. HEENT: Sclerae anicteric. Lips without cyanosis. Carotids 2+ and symmetrical. Bilateral bruits. No JVD. No thyromegaly. Conjunctiva pale. LUNGS: Clear anteriorly. No use of accessory muscles. CHEST: Healed surgical scars. ICD site right infraclavicular area nontender. HEART: Regular rate and rhythm with 2/6 systolic murmur. No heaves or thrills. ABDOMEN: Positive bowel sounds. Soft. There is lower abdominal tenderness and possible incarcerated hernia. EXTREMITIES: Pulses 1+ and symmetrical. No cyanosis, clubbing, or edema. BACK: No CVA tenderness. MUSCULOSKELETAL: Good tone. NEURO: Alert oriented x3. DIAGNOSTIC DATA: EKG reveals ventricular paced rhythm. LABORATORY DATA: CPK 200, MB 27, index 17.3, troponin of 7.06. Hemoglobin 7.9, hematocrit 24.1. The chest x-ray, venous congestion, mild bibasilar atelectasis, stable, CVD status post CABG and ICD placement. Renal function; sodium 136, potassium 4.0, chloride 102, CO2 24, glucose 194, BUN 46, creatinine 1.49, initial troponin was 0.35. The CT of the abdomen and pelvis, no acute abdominal or pelvic pathology. No bowel obstruction. No imaging explanation for nausea and vomiting. Moderate sized paraumbilical hernia with a non- incarcerated segment of mid transverse colon, status post cholecystectomy, appendectomy, and hysterectomy, exophytic hyperdense nodule, lower pole; cortex, left kidney; small bilateral renal cysts, mild diverticulosis, probable rounded atelectasis, cardiomegaly. IMPRESSION: 1. Nausea, vomiting, abdominal pain, and heme-positive stools. 2. Iron deficiency anemia with decreased hemoglobin, suspect gastrointestinal bleed. 3. Small increased troponin in the setting of the above consistent with small non-ST- elevation myocardial infarction versus demand ischemia. 4. Chronic systolic congestive heart failure with last LVEF of 35%. 5. Coronary artery disease, status post remote coronary bypass grafting. 6. Status post [employer] ICD placement. 7. Atrial fibrillation, status post cardioversion on Eliquis. 8. Peripheral artery disease, status post percutaneous intervention. 9. 4 to 5 cardiac risk factors. 10.Recent admission for encephalopathy. 11.Acute kidney injury, chronic kidney disease. RECOMMENDATIONS: 1. GI evaluation, consider upper and lower endoscopy. Consultation Report [address] [address] NAME: BONIFACIO TORRES : 32 STATUS : ADM IN [facility]#: [id number] AGE: 86 ADM/REG DATE : 03/19/17 MR#: [id number] REPORT SERV DATE: 03/20/17 DICTATED BY: NAYELI JEFFERY DATE: 03/20/17 REPORT STATUS : Draft TRANSCRIBED BY: MODL DATE: 03/20/17 2. Hold Eliquis. 3. Check CPK and MB, already done. Continue cycling cardiac enzymes. 4. Echocardiogram for reassessment of left ventricular systolic function. 5. [employer] ICD check. BN/MODL Nayeli Jeffery M.D. / [id number] CC: MD Mirela Kevin M.D.
--- NOTE | ~2017-03-19 | CN ---
Consultation Report [facility] [address] [place]. [address] NAME: BONIFACIO TORRES : 32 STATUS : ADM IN PAT#: [id number] AGE: 86 ADM/REG DATE : 03/19/17 MR#: [id number] REPORT SERV DATE: 03/21/17 DICTATED BY: RENU RUTH DATE: 03/21/17 REPORT STATUS : Draft TRANSCRIBED BY: MODYas DATE: 03/21/17 GENERAL SURGERY SERVICE CONSULTATION DATE OF CONSULTATION: 03/21/2017 ATTENDING SURGEON: Renu Ruth M.D. RESIDENT: Anton Montoya MD REASON FOR CONSULTATION: Umbilical hernia, possible abscess. HISTORY OF PRESENT ILLNESS: This is an 86-year-old female with past medical history notable for coronary artery disease, CHF and atrial fibrillation, on Eliquis, who presented from rehab with abdominal pain, nausea, vomiting, diarrhea, and chest pain for the past few days. She was found to be mildly anemic and did have heme-positive stools as well as mildly elevated troponins. She denies any known hematochezia or hematemesis. Her umbilical hernia is an incisional hernia from past partial nephrectomy, which has been present for many years and has generally been asymptomatic. She does feel that it has increased in size and has some new soreness after her recent symptoms. She does not think the hernia has ever been reducible. Of note, she has never had a colonoscopy before. Denies any recent weight loss. Denies any identified fevers. Denies any chills. PAST MEDICAL HISTORY: Chronic kidney disease, coronary artery disease, atrial fibrillation, COPD, CHF, type 2 diabetes, hypertension, peripheral vascular disease, and hypothyroidism. PAST SURGICAL HISTORY: CABG, pacemaker placement, partial nephrectomy, total abdominal hysterectomy, cholecystectomy, tonsillectomy, appendectomy, and bilateral mastectomy. ALLERGIES: LEVAQUIN AND CODEINE. HOME MEDICATIONS: Electronic medical reconciliation reviewed. Notable medicines include Eliquis and aspirin. SOCIAL HISTORY: Denies any alcohol, tobacco, or illicit drug use. Again of note, she was currently in rehab. FAMILY HISTORY: Significant for CHF. REVIEW OF SYSTEMS: Pertinent positives and negatives as above per the HPI. The patient's chest pain has since resolved. Denies any headache or shortness of breath worse than baseline. Full 12-system review was completed with no additional findings. PHYSICAL EXAMINATION: Consultation Report [address] [place]. [address] NAME: BONIFACIO TORRES : 32 STATUS : ADM IN [facility]#: [id number] AGE: 86 ADM/REG DATE : 03/19/17 MR#: [id number] REPORT SERV DATE: 03/21/17 DICTATED BY: RENU RUTH DATE: 03/21/17 REPORT STATUS : Draft TRANSCRIBED BY: ANTONI DATE: 03/21/17 VITAL SIGNS: Temperature 98.7, blood pressure 131/60, heart rate 70s to 80s, respirations 22, breathing 96% on 2 L nasal cannula. GENERAL: This is an adult white female, in no acute distress. She is alert and oriented x3. CARDIOVASCULAR: Regular rhythm and regular rate. PULMONARY: Clear to auscultation bilaterally. ABDOMEN: Soft, nondistended, mildly tender to palpation at her visible periumbilical incisional hernia. There is some scant chronic erythema. Area is firm, nonreducible. LABORATORY DATA: White count 11.3, hematocrit 26, platelets 256. Renal panel is significant for a creatinine of 1.49, glucose was 194. Troponins initially less than 0.5, on most recent draw was 7.06. BNP is 257. Urinalysis was negative. IMAGING: A CT scan of the abdomen and pelvis without contrast shows no signs of obstruction or other acute findings. Does note a periumbilical hernia with transverse colon within as well as bilateral renal cysts. ASSESSMENT AND PLAN: This is an 86-year-old female with coronary artery disease, congestive heart failure and atrial fibrillation, on Eliquis with heme-positive stool, anemia, chest pain as well as nausea, vomiting, diarrhea, and a periumbilical hernia. 1. Low suspicion for obstruction given her symptoms and chronicity of the hernia, however, does have new tenderness at this site. 2. Agree with holding Eliquis currently. If anticoagulation is warranted, would recommend temporarily using the heparin drip for planned procedures. 3. GI consult in place with plan for colonoscopy this weekend. Cardiology is also following. 4. We will follow along with serial exams. We will also obtain a CT scan with p.o. contrast specifically to evaluate passage of contrast through the transverse colon at the site of the hernia prior to any planned colonoscopy by GI. NEVA/ANTONI Renu Ruth M.D. / [id number] CC: MD Mirela Kevin M.D.
--- NOTE | ~2017-03-19 | HP ---
History And Physical [place] [id number] [facility] [place]. [address] NAME: BONIFACIO TORRES : 34 STATUS : ADM IN [facility]#: [id number] AGE: 86 ADM/REG DATE : 03/19/17 MR#: [id number] REPORT SERV DATE: 03/20/17 DICTATED BY: OH GIBBS DATE: 03/19/17 REPORT STATUS : Draft TRANSCRIBED BY: MODYas DATE: 03/19/17 DATE OF ADMISSION: 03/19/2017 POINT OF ENTRY: [facility]. PRIMARY TUGBOAT OPERATOR: Dr. Yadiel Burt. CHIEF COMPLAINT: Anorexia, nausea, vomiting, diarrhea, and chest pain. HISTORY OF PRESENT ILLNESS: Ms. Torres is an 86-year-old female with a history of insulin- dependent diabetes mellitus type 2, coronary artery disease, chronic systolic congestive heart failure, as well as atrial fibrillation, on anticoagulation, who presents to the emergency department today with multiple complaints including abdominal pain, nausea, vomiting, diarrhea, anorexia, as well as chest pain. The patient was admitted to the Hospitalist Service from 03/04/2017 through 03/09/2017 for severe symptomatic hypoglycemia and encephalopathy. Status post stabilization of her low blood sugar, she was discharged to [facility] where she has been since discharge. The patient states that she has had ongoing troubles with poor appetite and not eating as well as nausea, vomiting, bilateral lower quadrant abdominal pain, as well as intermittent episodes of diarrhea. Per review of [facility] transfer records, the patient was started on some IV fluids about a day ago for elevated BUN and creatinine ratio concerning for dehydration. Despite IV fluids, her BUN continued to climb and they transferred to [facility]. Today, the patient also complained of some substernal chest pain described as pressure of 6/10 in severity, lasted a few hours until she was given nitroglycerin here in the emergency department. Denies any radiation. Does report some shortness of breath with it. Initial evaluation in the emergency department notable for a blood pressure 110/34 and pulse of 70. Labs notable for a troponin of 0.13. Occult stool was positive. BUN and creatinine were mildly above her baseline. Hemoglobin is 8.0, hematocrit 24.1. She was subsequently admitted to the Hospitalist Service for further evaluation and management. REVIEW OF SYSTEMS: Comprehensive review of systems otherwise negative unless listed in history of present illness. PREVIOUS MEDICAL HISTORY: 1. Chronic kidney disease, stage III. Baseline creatinine OF approximately 1.2 to 1.4. 2. Coronary artery disease with prior coronary artery bypass grafting. 3. Atrial fibrillation, on Eliquis. 4. COPD on chronic 2 to 3 L by nasal cannula. 5. Chronic systolic congestive heart failure with ejection fraction of 40-50%. 6. Insulin-dependent diabetes mellitus type 2. 7. Hypertension. 8. PVD. History And Physical [address] [address] NAME: BONIFACIO TORRES : 32 STATUS : ADM IN [facility]#: [id number] AGE: 86 ADM/REG DATE : 03/19/17 MR#: [id number] REPORT SERV DATE: 03/20/17 DICTATED BY: OH GIBBS DATE: 03/19/17 REPORT STATUS : Draft TRANSCRIBED BY: ANTONI DATE: 03/19/17 9. Hypothyroidism. 10.History of breast cancer, status post bilateral mastectomy. 11.Chronic troponin elevation. SURGICAL HISTORY: 1. Pacemaker ICD insertion. 2. CABG. 3. Partial nephrectomy. 4. Abdominal hysterectomy. 5. Cholecystectomy. 6. Tonsillectomy. 7. Appendectomy. 8. Bilateral mastectomy with breast reconstruction. ALLERGIES: LEVAQUIN AND CODEINE. HOME MEDICATIONS: 1. Tylenol 650 mg q.6 hours p.r.n. 2. Albuterol inhaler 2 puffs inhalation q.4 hours p.r.n. 3. Maalox liquid 30 mL q.3 hours. 4. Eliquis 2.5 mg b.i.d. 5. Aspirin 81 mg daily. 6. Wellbutrin XL 300 mg daily. 7. Carvedilol 6.25 mg b.i.d. 8. Vitamin D 1000 units daily. 9. Vitamin B12 of 1000 mcg daily. 10.Cyclosporine eye drops b.i.d. 11.Colace 100 mg b.i.d. 12.Lexapro 10 mg daily. 13.Advair Diskus 500/50, one puff b.i.d. 14.Lasix 20 mg daily. 15.Insulin sliding scale. 16.NovoLog 20 units t.i.d. 17.Levemir 30 units q.a.m. 18.Levemir 14 units q.p.m. 19.Imdur 60 mg b.i.d. 20.Synthroid 125 mcg daily. 21.Lisinopril 5 mg at bedtime. 22.Singulair 10 mg daily. 23.Multivitamin one tab daily. 24.Nitroglycerin 0.4 mg sublingual p.r.n. 25.Fatty acid. 26.Fish oil 1000 mg daily. 27.Protonix 40 mg daily. 28.MiraLAX 17 g daily. 29.Phenergan 25 mg q.6 hours. 30.Metamucil one packet b.i.d. History And Physical [address] [address] NAME: BONIFACIO TORRES : 32 STATUS : ADM IN [facility]#: [id number] AGE: 86 ADM/REG DATE : 03/19/17 MR#: [id number] REPORT SERV DATE: 03/20/17 DICTATED BY: OH GIBBS DATE: 03/19/17 REPORT STATUS : Draft TRANSCRIBED BY: ANTONI DATE: 03/19/17 31.Crestor 20 mg at bedtime. 32.Aldactone 25 mg daily. 33.Spiriva one cap inhalation daily. SOCIAL HISTORY: Denies any tobacco, alcohol, or illicits. FAMILY MEDICAL HISTORY: Mother with history of congestive heart failure. LABS AND IMAGIN. White count 12.8, hemoglobin 8.0, hematocrit 24.1, and platelet count is 262. INR is 1.8. 2. Sodium is 134, potassium 3.9, chloride 98, carbon dioxide 29, BUN 56, creatinine 1.79, glucose is 21, calcium is 8.5, magnesium is 2.2. 3. Troponin 0.13. BNP is 257.4. 4. Urinalysis: Spec gravity of 1.013, hazy with no evidence of any infection. 5. Occult stool was positive. 6. Chest x-ray per my review shows a left-sided pacemaker in place with some chronic appearing interstitial infiltrates, but no evidence of any gross volume overload, consolidation, or infiltrate as per my review. 7. EKG per my review shows ventricular paced rhythm with no evidence of any acute ischemia or infarction. PHYSICAL EXAMINATION: VITAL SIGNS: Temperature is 98.0 degrees Fahrenheit, pulse is 70, respirations 25, saturating 90% on 2 L by nasal cannula, blood pressure 110/34. On recheck, blood pressure now 91/35, MAP of 75 with a pulse of 70. GENERAL: The patient is awake, alert, and in no acute distress. Resting comfortably in bed. She is a well-developed, well-nourished, elderly female. HEENT: Atraumatic and normocephalic. Slightly dry mucous membranes. Pupils are equal, round, reactive to light and accommodation. Extraocular eye movements intact. No scleral icterus. NECK: No jugular venous distention or carotid bruits. CARDIAC: Irregular rate and rhythm. No murmurs or gallops. Normal S1, S2. LUNGS: Clear to auscultation bilaterally. No wheezes, rhonchi, or crackles. ABDOMEN: Soft, somewhat tender to palpation in the bilateral lower quadrants but no rebound, guarding, or rigidity. EXTREMITIES: Warm, perfused. No cyanosis, clubbing, or edema. SKIN: Warm and dry. PSYCH: Affect appropriate. NEURO: Alert and oriented x3. Cranial nerves 2 through 12 grossly intact. Speech is normal. Gait not assessed. ASSESSMENT: Ms. Torres is an 86-year-old female who presents with multiple complaints including chest pain, shortness of breath, abdominal pain, diarrhea, anorexia, as well as nausea and vomiting, found to have acute kidney injury as well as heme-positive stools and chronic troponin elevation. History And Physical [address] [address] NAME: BONIFACIO TORRES : 32 STATUS : ADM IN [facility]#: [id number] AGE: 86 ADM/REG DATE : 03/19/17 MR#: [id number] REPORT SERV DATE: 03/20/17 DICTATED BY: OH GIBBS DATE: 03/19/17 REPORT STATUS : Draft TRANSCRIBED BY: ANTONI DATE: 03/19/17 PROBLEM LIST: 1. Chest pain. 2. Heme-positive stools. 3. Acute on chronic anemia. 4. Abdominal pain, nausea, vomiting, and diarrhea. 5. Anorexia. 6. Acute kidney injury, on chronic kidney disease stage 3. 7. Hyponatremia. 8. Insulin-dependent diabetes mellitus type 2. 9. History of coronary artery disease. 10.History of chronic systolic congestive heart failure. PLAN: 1. Chest pain. The patient does have a history of coronary artery disease, status post bypass grafting. We will trend out cardiac enzymes. Her troponin was elevated here at 0.13. However that appears to be within her recent baseline of chronic troponin elevation. We will consult Cardiology for assistance especially in light of heme- positive stools in the need to hold her aspirin and Eliquis at least overnight pending evaluation. 2. Troponin elevation. The patient has chronic troponin elevation. This appears to be within her recent baseline. We will continue to trend these out. Consult Cardiology for assistance. 3. Acute on chronic anemia with heme-positive stools. We will hold the patient's aspirin and Eliquis checking iron studies as well as GI consultation. Place the patient empirically on PPI b.i.d. 4. Abdominal pain, nausea, vomiting, diarrhea, as well as anorexia, unclear etiology at this time. The patient does have heme-positive stools. There is concern for possible gastritis or peptic ulcer disease. Place her on a PPI b.i.d. Holding aspirin as well as Eliquis. We will check a CT scan of the abdomen and pelvis as well as GI consultation. 5. Acute kidney injury on chronic kidney disease stage 3, likely due to poor oral intake due to anorexia as well as lisinopril. Holding her nephrotoxic medications. Providing IV fluid hydration. Recheck creatinine in the morning. 6. Insulin-dependent diabetes mellitus, type 2. Check hemoglobin A1c. Continue the patient's home insulin as well as level 2 sliding scale. 7. History of chronic systolic congestive heart failure. The patient currently appears euvolemic at this time. We will gently hydrate the patient overnight given acute kidney injury. 8. DVT prophylaxis. TEDs and SCDs given occult positive stools. CODE STATUS: The patient wished to be full code. JCB/MODL Oh Barreto. History And Physical [address] [place]. [address] NAME: CHA TORRESPANDA House : 32 STATUS : ADM IN [facility]#: [id number] AGE: 86 ADM/REG DATE : 03/19/17 MR#: [id number] REPORT SERV DATE: 03/20/17 DICTATED BY: OH GIBBS DATE: 03/19/17 REPORT STATUS : Draft TRANSCRIBED BY: MODL DATE: 03/19/17 MD Letty / [id number] CC: Remy Gonzalez Jr, MD Christine Parker, M.D. Brian Negus, M.D.
--- NOTE | ~2017-03-19 | EGD ---
EGD REPORT [facility] [address] [place] [address] NAME: ABBY TORRES : 34 STATUS : ADM IN PAT#: [id number] AGE: 86 ADM/REG DATE : 03/19/17 MR#: [id number] REPORT SERV DATE: 03/22/17 DICTATED BY: EUSEBIA DOUGLAS DATE: 03/22/17 REPORT STATUS : Draft [facility]ANS[facility]IB[facility]: [facility] DATE: 03/22/17 End[facility] Patient Name: Abby Torres Date of : 1930 Attending MD: EUSEBIA DOUGLAS MD Procedure Date No Time: 03/22/2017 Procedure: Upper GI endoscopy Indications: Generalized abdominal pain, Anemia, Nausea with vomiting Referring MD: JUSTINE KRAUSE MD Medicines: Monitored Anesthesia Care Complications: No immediate complications. Procedure: Pre-Anesthesia Assessment: - ASA Grade Assessment: III - A patient with severe systemic disease. After obtaining informed consent, the endoscope was passed under direct vision. Throughout the procedure, the patient's blood pressure, pulse, and oxygen saturations were monitored continuously. The GIF [id number] was introduced through the mouth, and advanced to the third part of duodenum. The upper GI endoscopy was accomplished without difficulty. The patient tolerated the procedure well. Findings: The nasopharynx was normal. LA Grade A (one or more mucosal breaks less than 5 mm, not extending between tops of 2 mucosal folds) esophagitis with no bleeding was found at the gastroesophageal junction. A small hiatus hernia was present. Diffuse mild inflammation characterized by congestion (edema) was found in the entire examined stomach. Biopsies were taken with a cold forceps for histology. Verification of patient identification for the specimen was done. Estimated blood loss was minimal. The examined duodenum was normal. Biopsies were taken with a cold forceps for histology. Verification of patient identification for the specimen was done. Estimated blood loss was minimal. Impression: - Normal nasopharynx. - LA Grade A reflux esophagitis. - Hiatus hernia. - Gastritis. Biopsied. - Normal examined duodenum. Biopsied. Recommendation: - Full liquid diet today. - Follow an antireflux regimen daily. EGD REPORT [address] [address] NAME: ABBY TORRES : 34 STATUS : ADM IN [facility]#: [id number] AGE: 86 ADM/REG DATE : 03/19/17 MR#: [id number] REPORT SERV DATE: 03/22/17 DICTATED BY: EUSEIBA DOUGLAS DATE: 03/22/17 REPORT STATUS : Draft TRANSCRIBED BY: StayNTouch DATE: 03/22/17 - Use Pepcid (famotidine) 20 mg PO BID for 3 months. - Return to my office in 2 weeks. Procedure Code(s): --- Professional --- 66160, Esophagogastroduodenoscopy, flexible, transoral; with biopsy, single or multiple Diagnosis Code(s): --- Professional --- K21.0, Gastro-esophageal reflux disease with esophagitis K44.9, Diaphragmatic hernia without obstruction or gangrene K29.70, Gastritis, unspecified, without bleeding R10.84, Generalized abdominal pain D64.9, Anemia, unspecified R11.2, Nausea with vomiting, unspecified CPT copyright 2013 [employer]. All rights reserved. The codes documented in this report are preliminary and upon film historian review may be revised to meet current compliance requirements. EUSEBIA DOUGLAS MD 03/22/2017 11:09 AM This report has been signed electronically. Number of Addenda: 0 Note Initiated On: 03/22/2017 10:26 AM Scope Withdrawal Time 0 hours 0 minutes 0 seconds [id number] [place] [id number]
--- NOTE | ~2017-03-19 | DS ---
Discharge Summary [place] [address] [facility] [place]. [address] NAME: BONIFACIO TORRES : 34 STATUS : DIS IN PAT#: [id number] AGE: 86 ADM/REG DATE : 03/19/17 MR#: [id number] REPORT SERV DATE: 03/26/17 DICTATED BY: LISA AGUILAR DATE: 03/25/17 REPORT STATUS : Draft TRANSCRIBED BY: MODL DATE: 03/25/17 ADMISSION DATE: 03/19/2017 DISCHARGE DATE: 03/25/2017 DISCHARGE DIAGNOSES: 1. Umbilical hernia with evidence of abscess and necrosis. The patient was seen by Palliative Care and Hospice Care since she is not a good surgical candidate. 2. Non-ST elevation myocardial infarction with history of ischemic cardiomyopathy. 3. Diabetes mellitus. 4. Obesity. 5. Chronic kidney disease. CONSULTANTS: 1. Dr. Burt. 2. Dr. Menchaca. 3. Dr. Sena. HISTORY OF PRESENT ILLNESS: This is an 86-year-old female patient who had a recent hospitalization and discharged to [facility], had to come back to the hospital with nausea, vomiting, and also chest pain. Please see dictated H and P done by Dr. Saenz. HOSPITAL COURSE: Please see dictated interim discharge summary done by Dr. Gonzalez. Briefly, the patient came back to the hospital from [facility] with symptoms of nausea, vomiting, and also possibility of a GI bleed with the finding of Hemoccult positive on the initial emergency evaluation. Had a GI workup first, and also she does have a slight elevation of the troponin. After seen by Dr. Burt, had a GI workup done. It showed umbilical hernia with evidence of necrosis and abscess. Seen by the surgery for that. She was thought she is not a surgical candidate with other medical comorbidities. Therefore, the patient was referred to the Palliative Care and she decided to go home with hospice care. [facility] has been following this patient. Now, she is tolerating mechanical soft diet without any problem. Since her intake has been decreased, her insulin amount has changed to lower dose and other medications have been slightly adjusted based on her intake. She maximized inpatient benefit. She made a decision clearly that she would like to go home with hospice care and she can eat a mechanical soft diet. DISCHARGE MEDICATIONS: 1. Continue Wellbutrin XL 300 mg once in the morning time. 2. Coreg was increased to 25 mg twice a day. 3. Vitamin B12 once a day. 4. Vitamin D3, 1000 units once a day. 5. Colace 100 twice a day. 6. Lexapro 10 mg once a day. 7. Lasix 20 mg once a day. Discharge Summary [place] [address] [place]. [address] NAME: BONIFACIO TORRES : 34 STATUS : DIS IN PAT#: [id number] AGE: 86 ADM/REG DATE : 03/19/17 MR#: [id number] REPORT SERV DATE: 03/26/17 DICTATED BY: LISA AGUILAR DATE: 03/25/17 REPORT STATUS : Draft TRANSCRIBED BY: ANTONI DATE: 03/25/17 8. NovoLog 20, 10 units for each meal and Levemir 14 units at bedtime. 9. Imdur 60 mg twice a day. 10.Synthroid 125 mcg once a day. 11.Prinivil 5 mg once a day. 12.Singulair 10 mg once a day. 13.Multivitamin 1 tablet once a day. 14.Protonix 40 mg once a day. 15.MiraLAX powder once a day. 16.Spiriva 1 capsule once a day. 17.Advair 2 puffs twice a day. 18.Zofran and Phenergan as needed. 19.Aldactone was discontinued. 20.Continue the Tylenol. 21.Crestor 20 mg once at nighttime. 22.Eliquis was discontinued, and continue aspirin only. 23.She was given the dose of steroid for her asthma. We are going to continue the prednisone 10 mg four tablets down to one tablet every two days. DISPOSITION: The patient is discharged to home with [facility] in stable condition. After discharge, her care should be managed by [facility] at home. TIME SPENT: More than 30 minutes. DICTATED BY: Jocy Thomas/ANTONI Lisa Aguilar M.D. / [id number] CC: Jocy Thomas M.D.
[~2017-03-19 18:18] MED LIST changes: +ADVAIR INH; +AMARYL2 PO; +COREG6 PO; +CYANO1000T PO; +ELIQUIS 2.5 MG2.5 MG PO; +HALF81 PO; +MULTIVIT/MIN PO; +NITROGLYCERIN SPRAY SL; +NITROSTAT0.4 MG SL; +NOVOLOG SC; +RESTASIS OPH; +SPIRO25 PO
[2017-03-19 18:32] LABS: BASOPHILS 0.1 %; BASOPHILS ABSOLUTE 0.01 10/3/uL (0.0-0.16); EOSINOPHILS 1.4 %; EOSINOPHILS ABSOLUTE 0.18 10/3/uL (0.0-0.53); ER CBC TAT 0 Hrs 05 Mins; IMMATURE GRANULOCYTES 0.3 %; IMMATURE GRANULOCYTES ABSOLUTE 0.04 10/3/uL (0.0-0.11); LYMPHOCYTES 8.2 %; LYMPHOCYTES ABSOLUTE 1.05 10/3/uL (0.67-4.30); MEAN CORPUS HGB CONC 33.2 g/dL (32.0-36.0); MEAN CORPUSCULAR HEMOGLOB 29.1 pg (26.0-34.0); MEAN CORPUSCULAR VOLUME 87.6 fL (80-100); MONOCYTES 9.4 %; NEUTROPHILS 80.6 %; PLATELET COUNT 262 10/3/uL (150-400); RED CELL COUNT 2.75 10/6/uL (4.0-5.6); WHITE BLOOD CELLS 12.8 10/3/uL (4.5-10.5)
[2017-03-19 18:33] LABS: HEMATOCRIT 24.1 % (36.0-48.0); MANUAL DIFF NO %
[2017-03-19 18:41] LABS: INTERNATIONAL NORMAL RATI 1.8 UNITS (-); PARTIAL THROMBO TIME 40.1 SEC (22.5-37.2)
[2017-03-19 18:42] LABS: PROTIME (NOT ORD) 20.9 SEC (12.0-14.5)
[2017-03-19 18:51] LABS: BUN (BLOOD UREA NITROGEN) 50 MG/DL (6-23); CALCIUM, SERUM 8.5 MG/DL (8.5-10.4); CHEST PAIN PROFILE TAT 0 Hrs 24 Mins; CHLORIDE, SERUM 98 MMOL/L (96-112); CO2 (CARBON DIOXIDE) 29 MMOL/L (24-34); CREATININE 1.79 MG/DL (0.55-1.02); GFR AFRICAN AMERICAN 30 ML/MIN (>=60); GFR NON AFRICAN AMERICAN 26 ML/MIN (>=60); GLUCOSE, SERUM 201 MG/DL (60-99); POTASSIUM, SERUM 3.9 MMOL/L (3.5-5.3); SODIUM, SERUM 134 MMOL/L (135-148); TROPONIN I 0.13 NG/ML (<0.05)
[2017-03-19] MEDS ORDERED: NITROSTAT0.4 MG SL (18:57)
[2017-03-19] MEDS ORDERED: ZOFRAN4 PO (18:58)
[2017-03-19] MEDS ORDERED: ZOFRAN ODT4 MG SL (18:58)
[2017-03-19] MEDS ORDERED: PR25R PR (18:59)
[2017-03-19] MEDS ORDERED: METPAKSF PO (19:00)
[2017-03-19] MEDS ORDERED: NOVOLOG SC ×2 (19:02→19:10)
[2017-03-19] MEDS ORDERED: SPIRIVA INH (19:03)
[2017-03-19] MEDS ORDERED: SPIRO25 PO (19:03)
[2017-03-19] MEDS ORDERED: T PO (19:04)
[2017-03-19] MEDS ORDERED: VENTOLIN HFA INH (19:05)
[2017-03-19] MEDS ORDERED: MAALOX PO (19:06)
[2017-03-19] MEDS ORDERED: MULTIVITAMI1 PO (19:08)
[2017-03-19] MEDS ORDERED: FISH-EPA1000 MG PO (19:08)
[2017-03-19] MEDS ORDERED: SINGULAIR1 PO (19:08)
[2017-03-19] MEDS ORDERED: CRESTOR20 MG PO (19:09)
[2017-03-19] MEDS ORDERED: PROTONIX PO (19:09)
[2017-03-19] MEDS ORDERED: MIRALAX POWDER1 PKT PO (19:09)
[2017-03-19] MEDS ORDERED: L20 PO (19:10)
[2017-03-19] MEDS ORDERED: LEVEMIR SC ×2 (19:11→19:12)
[2017-03-19] MEDS ORDERED: SYN125 PO (19:14)
[2017-03-19] MEDS ORDERED: PRIN5 PO (19:14)
[2017-03-19] MEDS ORDERED: IMDUR60 PO (19:14)
[2017-03-19] MEDS ORDERED: VITAMIN D31000 UNIT PO (19:15)
[2017-03-19] MEDS ORDERED: VITAMIN B-121000 MC1 PO (19:15)
[2017-03-19] MEDS ORDERED: RESTASIS OPH (19:15)
[2017-03-19] MEDS ORDERED: LEXAPRO10 PO (19:16)
[2017-03-19] MEDS ORDERED: DSS PO (19:16)
[2017-03-19] MEDS ORDERED: ADVAIR INH (19:16)
[2017-03-19] MEDS ORDERED: ASAB PO (19:17)
[2017-03-19] MEDS ORDERED: WELLXL300 PO (19:17)
[2017-03-19] MEDS ORDERED: ELIQUIS 2.5 MG2.5 MG PO (19:17)
[2017-03-19] MEDS ORDERED: COREG25 PO (19:18)
[2017-03-19 20:15] LABS: ASCORBIC ACID (UR NOT ORDER) 20 (NEG); BILIRUBIN, URINE NEGATIVE (NEG); ER URINALYSIS TAT 0 Hrs 19 Mins; KETONE, URINE NEGATIVE (NEG); LEUKOCYTE ESTERASE(NOT OR NEG (NEG); NITRITE (URINE) NEG (NEG); WBC (NOT ORDERED) (RFLEX) 3 (0-5)
[2017-03-19 23:47] LABS: FERRITIN 377 NG/ML (8-252); IRON BINDING CAPACITY 178 MCG/DL (225-410); IRON, SERUM 18 MCG/DL (35-150)
[2017-03-20 01:30] LABS: BASOPHILS 0.2 %; BASOPHILS ABSOLUTE 0.02 10/3/uL (0.0-0.16); EOSINOPHILS 1.9 %; EOSINOPHILS ABSOLUTE 0.24 10/3/uL (0.0-0.53); HEMATOCRIT 24.9 % (36.0-48.0); HEMOGLOBIN 8.1 g/dL (12.0-16.0); IMMATURE GRANULOCYTES 0.5 %; IMMATURE GRANULOCYTES ABSOLUTE 0.06 10/3/uL (0.0-0.11); LYMPHOCYTES 6.7 %; LYMPHOCYTES ABSOLUTE 0.86 10/3/uL (0.67-4.30); MEAN CORPUS HGB CONC 32.5 g/dL (32.0-36.0); MEAN CORPUSCULAR HEMOGLOB 29.2 pg (26.0-34.0); MEAN CORPUSCULAR VOLUME 89.9 fL (80-100); MEAN PLATELET VOLUME 10.1 fL (9.2-13.0); MONOCYTES 9.6 %; MONOCYTES ABSOLUTE 1.24 10/3/uL (0.21-1.20); NEUTROPHILS 81.1 %; NEUTROPHILS ABSOLUTE 10.47 10/3/uL (2.02-8.40); PLATELET COUNT 263 10/3/uL (150-400); RBC DISTRIBUTION WIDTH 15.8 % (12.0-16.0); RED CELL COUNT 2.77 10/6/uL (4.0-5.6); WHITE BLOOD CELLS 12.9 10/3/uL (4.5-10.5)
[2017-03-20 01:32] LABS: MANUAL DIFF NO %
[2017-03-20 02:45] LABS: ALBUMIN 2.2 G/DL (3.5-5.0); CALCIUM, SERUM 8.5 MG/DL (8.5-10.4); CHLORIDE, SERUM 102 MMOL/L (96-112); CREATININE 1.49 MG/DL (0.55-1.02); GFR AFRICAN AMERICAN 37 ML/MIN (>=60); GFR NON AFRICAN AMERICAN 32 ML/MIN (>=60); GLUCOSE, SERUM 194 MG/DL (60-99); SODIUM, SERUM 136 MMOL/L (135-148)
[2017-03-20 02:47] LABS: BUN (BLOOD UREA NITROGEN) 46 MG/DL (6-23); CO2 (CARBON DIOXIDE) 24 MMOL/L (24-34); FOLATE 38.7 NG/ML (>5.2)
[2017-03-20 02:48] LABS: TROPONIN I 0.35 NG/ML (<0.05)
[2017-03-20 07:06] LABS: HEMATOCRIT 24.1 % (36.0-48.0); HEMOGLOBIN 7.9 g/dL (12.0-16.0)
[2017-03-20 07:27] LABS: CK-MB 27.3 NG/ML
[2017-03-20 07:28] LABS: CKMB INDEX (NOT ORD) 13.7
[2017-03-20 07:29] LABS: TROPONIN I 7.06 NG/ML (<0.05)
[2017-03-20 10:30] LABS: CK-MB 4.1 NG/ML; CPK 44 U/L (0-200)
[2017-03-20 13:31] LABS: HEMATOCRIT 26.9 % (36.0-48.0)
[2017-03-20 18:48] LABS: HEMOGLOBIN 8.6 g/dL (12.0-16.0)
[2017-03-21 07:53] LABS: BASOPHILS 0.1 %; BASOPHILS ABSOLUTE 0.01 10/3/uL (0.0-0.16); EOSINOPHILS 1.8 %; EOSINOPHILS ABSOLUTE 0.21 10/3/uL (0.0-0.53); HEMATOCRIT 24.5 % (36.0-48.0); HEMOGLOBIN 8.1 g/dL (12.0-16.0); IMMATURE GRANULOCYTES 0.4 %; IMMATURE GRANULOCYTES ABSOLUTE 0.05 10/3/uL (0.0-0.11); LYMPHOCYTES 6.7 %; LYMPHOCYTES ABSOLUTE 0.78 10/3/uL (0.67-4.30); MEAN CORPUS HGB CONC 33.1 g/dL (32.0-36.0); MEAN CORPUSCULAR HEMOGLOB 29.5 pg (26.0-34.0); MEAN CORPUSCULAR VOLUME 89.1 fL (80-100); MEAN PLATELET VOLUME 10.2 fL (9.2-13.0); MONOCYTES 7.8 %; MONOCYTES ABSOLUTE 0.91 10/3/uL (0.21-1.20); NEUTROPHILS 83.2 %; NEUTROPHILS ABSOLUTE 9.71 10/3/uL (2.02-8.40); PLATELET COUNT 296 10/3/uL (150-400); RBC DISTRIBUTION WIDTH 15.8 % (12.0-16.0); RED CELL COUNT 2.75 10/6/uL (4.0-5.6); WHITE BLOOD CELLS 11.7 10/3/uL (4.5-10.5)
[2017-03-21 07:54] LABS: MANUAL DIFF NO %
[2017-03-21 08:01] LABS: CALCIUM, SERUM 8.8 MG/DL (8.5-10.4); CHLORIDE, SERUM 105 MMOL/L (96-112); CO2 (CARBON DIOXIDE) 25 MMOL/L (24-34); GFR AFRICAN AMERICAN 63 ML/MIN (>=60); GFR NON AFRICAN AMERICAN 54 ML/MIN (>=60); GLUCOSE, SERUM 190 MG/DL (60-99); SODIUM, SERUM 139 MMOL/L (135-148)
[2017-03-21 08:03] LABS: BUN (BLOOD UREA NITROGEN) 29 MG/DL (6-23); CREATININE 0.96 MG/DL (0.55-1.02)
[2017-03-21 10:15] LABS: HEMATOCRIT 24.5 % (36.0-48.0); HEMOGLOBIN 8.1 g/dL (12.0-16.0)
[2017-03-21 10:26] LABS: CK-MB 17.6 NG/ML
[2017-03-21 10:27] LABS: CKMB INDEX (NOT ORD) 15.4; CPK 114 U/L (0-200)
[2017-03-21 19:01] LABS: HEMATOCRIT 27.5 % (36.0-48.0)
[2017-03-21 22:32] LABS: HEMATOCRIT 23.9 % (36.0-48.0); HEMOGLOBIN 7.9 g/dL (12.0-16.0)
[2017-03-22 05:27] LABS: BASOPHILS 0 %; EOSINOPHILS 0 %; HEMATOCRIT 24.8 % (36.0-48.0); HEMOGLOBIN 8.1 g/dL (12.0-16.0); IMMATURE GRANULOCYTES 1.3 %; IMMATURE GRANULOCYTES ABSOLUTE 0.09 10/3/uL (0.0-0.11); LYMPHOCYTES 6.5 %; LYMPHOCYTES ABSOLUTE 0.47 10/3/uL (0.67-4.30); MEAN CORPUS HGB CONC 32.7 g/dL (32.0-36.0); MEAN CORPUSCULAR HEMOGLOB 28.5 pg (26.0-34.0); MEAN CORPUSCULAR VOLUME 87.3 fL (80-100); MEAN PLATELET VOLUME 10.2 fL (9.2-13.0); MONOCYTES 2.5 %; MONOCYTES ABSOLUTE 0.18 10/3/uL (0.21-1.20); NEUTROPHILS 89.7 %; NEUTROPHILS ABSOLUTE 6.46 10/3/uL (2.02-8.40); PLATELET COUNT 300 10/3/uL (150-400); RBC DISTRIBUTION WIDTH 15.6 % (12.0-16.0); RED CELL COUNT 2.84 10/6/uL (4.0-5.6); WHITE BLOOD CELLS 7.2 10/3/uL (4.5-10.5)
[2017-03-22 05:29] LABS: MANUAL DIFF NO %
[2017-03-22 05:36] LABS: BUN (BLOOD UREA NITROGEN) 21 MG/DL (6-23); CALCIUM, SERUM 9.2 MG/DL (8.5-10.4); CHLORIDE, SERUM 102 MMOL/L (96-112); CO2 (CARBON DIOXIDE) 28 MMOL/L (24-34); CREATININE 1.02 MG/DL (0.55-1.02); GFR AFRICAN AMERICAN 58 ML/MIN (>=60); GFR NON AFRICAN AMERICAN 50 ML/MIN (>=60); GLUCOSE, SERUM 275 MG/DL (60-99); POTASSIUM, SERUM 3.9 MMOL/L (3.5-5.3); SODIUM, SERUM 141 MMOL/L (135-148)
[2017-03-23 05:49] LABS: BUN (BLOOD UREA NITROGEN) 23 MG/DL (6-23); CALCIUM, SERUM 8.9 MG/DL (8.5-10.4); CHLORIDE, SERUM 107 MMOL/L (96-112); CO2 (CARBON DIOXIDE) 29 MMOL/L (24-34); CREATININE 1.01 MG/DL (0.55-1.02); GFR AFRICAN AMERICAN 59 ML/MIN (>=60); GFR NON AFRICAN AMERICAN 51 ML/MIN (>=60); GLUCOSE, SERUM 272 MG/DL (60-99); POTASSIUM, SERUM 3.9 MMOL/L (3.5-5.3); SODIUM, SERUM 135 MMOL/L (135-148)
[2017-03-24 05:53] LABS: BUN (BLOOD UREA NITROGEN) 23 MG/DL (6-23); CALCIUM, SERUM 8.9 MG/DL (8.5-10.4); CHLORIDE, SERUM 105 MMOL/L (96-112); CO2 (CARBON DIOXIDE) 32 MMOL/L (24-34); CREATININE 1.04 MG/DL (0.55-1.02); GFR AFRICAN AMERICAN 57 ML/MIN (>=60); GFR NON AFRICAN AMERICAN 49 ML/MIN (>=60); POTASSIUM, SERUM 3.4 MMOL/L (3.5-5.3)
[2017-03-24 05:55] LABS: GLUCOSE, SERUM 179 MG/DL (60-99); SODIUM, SERUM 142 MMOL/L (135-148)
[2017-03-25 05:05] LABS: CALCIUM, SERUM 8.4 MG/DL (8.5-10.4); CHLORIDE, SERUM 107 MMOL/L (96-112); CO2 (CARBON DIOXIDE) 31 MMOL/L (24-34); CREATININE 0.99 MG/DL (0.55-1.02); GFR AFRICAN AMERICAN 61 ML/MIN (>=60); GFR NON AFRICAN AMERICAN 52 ML/MIN (>=60); SODIUM, SERUM 141 MMOL/L (135-148)
[2017-03-25 05:07] LABS: BUN (BLOOD UREA NITROGEN) 18 MG/DL (6-23); GLUCOSE, SERUM 217 MG/DL (60-99); POTASSIUM, SERUM 4.1 MMOL/L (3.5-5.3)
[2017-03-25] MEDS ORDERED: P10 PO (13:02)
== END 2017-03-25 13:51 | disposition hospice, home (50) | DRG 377 ==
LOC: ER 18:18 → 5NO 21:06
PROVIDERS: Internal Medicine; Internal Medicine Cardiovascular Disease; Internal Medicine Gastroenterology; Nurse Practitioner
PROC: 0DB98ZX Excision of Duodenum, Via Natural or Artificial Opening Endoscopic, Diagnostic (ICD-10-PCS; 2017-03-22)
PROC: 0DB68ZX Excision of Stomach, Via Natural or Artificial Opening Endoscopic, Diagnostic (ICD-10-PCS; principal; 2017-03-22 10:36)
PROC: 0DBN8ZX Excision of Sigmoid Colon, Via Natural or Artificial Opening Endoscopic, Diagnostic (ICD-10-PCS; 2017-03-22 10:36)
DX: K92.2 Gastrointestinal hemorrhage, unspecified (principal); I21.4 Non-ST elevation (NSTEMI) myocardial infarction; N17.9 Acute kidney failure, unspecified; K42.1 Umbilical hernia with gangrene; I50.22 Chronic systolic (congestive) heart failure; J44.1 Chronic obstructive pulmonary disease with (acute) exacerbation; E11.22 Type 2 diabetes mellitus with diabetic chronic kidney disease; I25.10 Atherosclerotic heart disease of native coronary artery without angina pectoris; D64.9 Anemia, unspecified; N18.3 Chronic kidney disease, stage 3 (moderate); Z79.4 Long term (current) use of insulin; I73.9 Peripheral vascular disease, unspecified; Z95.810 Presence of automatic (implantable) cardiac defibrillator; Z51.5 Encounter for palliative care; Z95.1 Presence of aortocoronary bypass graft
CPT/HCPCS: 36415; 71010; 74176; 80048; 80069; 81001; 82550; 82553; 82570; 82607; 82728; 82746; 82962; 83036; 83540; 83550; 83735; 83880; 83935; 84300; 84443; 84484; 85014; 85018; 85025; 85610; 85730; 86850; 86900; 86901; 88305; 88342; 93005; 93288; 94640; 97110-GO; 97116-GP; 97161-GP; 97165-GO; 97535-GO; 99285; A9270-GY; C8929; C9113; J2920; J2930; Q9957